=== PATIENT | female | born 1985 | race Caucasian/White ===

== ENCOUNTER 2018-11-28 15:00 | Emergency (ER) | payer MEDICAID ==
--- NOTE | 2018-11-28 16:53 | EDPHY ---
H & P Stated Complaint: Had episode of numbness L face/arm 2 days ago that resolved Time Seen by Provider: 11/28/18 16:51 HPI/ROS: HPI CHIEF COMPLAINT: Blurry vision, left-sided face and arm numbness tingling resolved. HISTORY OF PRESENT ILLNESS: This is a 33-year-old female, she is otherwise healthy without any significant medical history presents emergency room with no current active symptoms however 2 days ago at 8:30 a.m. At night she had 5 min of blurry vision and numbness and tingling left face left arm that lasted 5 min 2 days ago and now is completely resolved. She no longer has any symptoms. She denies any chest pain or shortness of breath. Denies any focal numbness or tingling denies any focal weakness, denies headache. Symptoms were lasted 5 min and happened 2 days ago. She called her primary care doctor was advised to come to the emergency room. Past Medical History: Denies significant medical history Past Surgical History: Denies significant surgical history Social History: Denies drugs alcohol tobacco Family History: Noncontributory ROS REVIEW OF SYSTEMS: 10 Systems were reviewed and negative with the exception of the elements mentioned in the history of present illness. Exam Constitutional appears well nontoxic triage nursing summary reviewed, vital signs reviewed, awake/alert. Eyes normal conjunctivae and sclera, EOMI, PERRLA. HENT normal inspection, atraumatic, moist mucus membranes, no epistaxis, neck supple/ no meningismus, no raccoon eyes. Respiratory clear to auscultation bilaterally, normal breath sounds, no respiratory distress, no wheezing. Cardiovascular rate normal, regular rhythm, no murmur, no edema, distal pulses normal. Gastrointestinal soft, non-tender, no rebound, no guarding, normal bowel sounds, no distension, no pulsatile mass. Genitourinary no CVA tenderness. Musculoskeletal no midline vertebral tenderness, full range of motion, no calf swelling, no tenderness of extremities, no meningismus, good pulses, neurovascularly intact. Skin pink, warm, & dry, no rash, skin atraumatic. Neurologic normal neurological exam, awake, alert and oriented x 3, AAOx3, moves all 4 extremities equally, motor intact, sensory intact, CN II-XII intact , normal cerebellar, normal vision, normal speech. Psychiatric normal mood/affect. Heme/Lymph/Immune no lymphadenopathy. Differential Diagnosis: Includes but is not limited to in a particular order TIA, MS, intracranial bleed, CVA Medical Decision Making: Plan for this patient will contact Neurology as her symptoms have completely resolved at last for 5 min 2 days ago. She has not had a recurrence of symptoms and has never had this before. She denies any complaints of symptoms at this time. Re-evaluation: 1658: Given that this patient has a normal neurological exam here no focal neuro deficit her symptoms resolved 2 days ago plan will be for touch base with Neurology at discussed treatment plan recommendations. I spoke with Dr. Lloyd Gonzalez: [id number] recommends MRI brain without. If normal can follow up outpatient MRI of the brain called to me by Dr. Herbert negative for bleed stroke or anything acute. I updated the patient better MRI results. Do recommend she follows up with Neurology on outpatient basis Also return precautions discussed she understands return emergency room she develops any worsening symptoms numbness or tingling weakness not doing well. She is comfortable this plan. Source: Patient - Personal History LMP (Females 10-55): 15-21 Days Ago Current Tetanus Diphtheria and Acellular Pertussis (TDAP): Yes - Medical/Surgical History Other PMH: migraines as kid - Social History Smoking Status: Never smoked Constitutional: Initial Vital Signs Temperature (C) 36.9 C 11/28/18 15:05 Heart Rate 62 11/28/18 15:05 Respiratory Rate 16 11/28/18 15:05 Blood Pressure 130/73 H 11/28/18 15:05 O2 Sat (%) 99 11/28/18 15:05 O2 Delivery Mode Room Air Allergies/Adverse Reactions: No Known Allergies Allergy (Unverified 11/28/18 15:10) Home Medications: Medication Instructions Recorded NK [No Known Home Meds] 11/28/18 Departure - Departure Disposition: Home, Routine, Self-Care Clinical Impression: Arm paresthesia, left Condition: Good Instructions: Paresthesia (ED) Additional Instructions: 1. Follow up with Neurology 2. Return to the emergency room if worsening symptoms Referrals: Lyn Tapia NP [Primary Care Provider] - As per Instructions Lloyd Gonzalez MD [Medical Doctor] - As per Instructions
[2018-11-28 17:14] VITALS: BP 145/66
== END 2018-11-28 18:03 | disposition home or self-care (01) ==
DX: H53.8 Other visual disturbances (principal); R20.2 Paresthesia of skin